=== PATIENT | female | born 1960 | race Caucasian/White ===

== ENCOUNTER 2018-04-06 18:05 | Emergency (ER) | payer BC, OTHER ==
[~2018-04-06] VITALS: Ht 154.9 cm; Wt 54.4 kg
[2018-04-06 23:30] LABS: BASOPHILS # (AUTO) 0.3 (0.0-0.1); BASOPHILS % 1.7 % (0.0-1.0); EOSINOPHILS # (AUTO) 0.6 (0.0-0.4); HEMATOCRIT 41.6 % (34.2-44.1); HEMOGLOBIN 14.1 g/dL (12.0-16.0); LYMPHOCYTES # (AUTO) 2.9 (1.0-3.2); LYMPHOCYTES % 18.8 % (18.0-39.1); MEAN CORPUSCULAR HEMOGLOBIN 31.2 pg (28-32); MEAN CORPUSCULAR HGB CONC 33.9 g/dL (31-35); MONOCYTES # (AUTO) 1.3 (0.2-0.8); MONOCYTES % 8.7 % (4.4-11.3); NEUTROPHILS # (AUTO) 9.6 (2.1-6.9); NEUTROPHILS % 62.7 % (38.7-80.0); PLATELET COUNT 506 x10e3/uL (140-360); RED BLOOD COUNT 4.52 x10e6/uL (3.6-5.1); RED CELL DISTRIBUTION WIDTH 12.8 % (11.7-14.4)
[2018-04-06 23:54] LABS: ALANINE AMINOTRANSFERASE 26 IU/L (0-55); ALBUMIN 3.7 g/dL (3.5-5.0); ALBUMIN/GLOBULIN RATIO 0.8 (0.8-2.0); ALKALINE PHOSPHATASE 144 IU/L (40-150); ANION GAP 18.9 mmol/L (8-16); BLOOD UREA NITROGEN 12 mg/dL (7-26); BUN/CREATININE RATIO 13 (6-25); CALCIUM 9.9 mg/dL (8.4-10.2); CARBON DIOXIDE 22 mmol/L (22-29); CHLORIDE 105 mmol/L (98-107); CREATININE, SERUM 0.91 mg/dL (0.57-1.11); EST GLOMERULAR FILTRATION RATE > 60 ML/MIN (60-); GLUCOSE 79 mg/dL (74-118); POTASSIUM 3.9 mmol/L (3.5-5.1); SODIUM 142 mmol/L (136-145)
[2018-04-07] MEDS ORDERED: SODIUM CHLORIDE 0.9% 50ML 50 ML ONE (00:05)
[2018-04-07] MEDS ORDERED: IOPAMIDOL 370 MG/ML 200 ML INFUS..BTL INJ ONE (00:05)
--- NOTE | 2018-04-07 00:52 | Diagnostic Imaging Report ---
History:Right cheek pain and swelling. Comparison studies: None Technique: Axial images were obtained through the facial region. Coronal and sagittal images reconstructed from the axial data. Dose modulation, iterative reconstruction, and/or weight based adjustment of the mA/kV was utilized to reduce the radiation dose to as low as reasonably achievable. Intravenous contrast: 100 cc of Isovue 370. Findings: Suboptimal evaluation due to dental amalgam artifacts. Soft tissues: Large right subcutaneous soft tissue inflammatory changes in the right perimandibular region that extends superiorly to the premaxillary region. Small superficial, focal soft tissue defect. Suboptimal evaluation due to significant streak artifacts from dental amalgam and dental implants. Despite the limitation, there is 0.6 x 0.8 x 1.5 cm right peripheral rim enhancing hypodensity in right perimandibular soft tissues, represents abscess with surrounding soft tissue phlegmon and cellulitis. Bones: No fractures or bony abnormalities. Dental caries with endodontal disease involving right second mandibular molar with buccal cortical disruption and possible periapical lucency around right first molar implant. Dental caries and endodontal disease involves left maxillary first molar. Orbits: Globes: Intact. Extra or intraconal abnormalities: None. Paranasal sinuses: Clear IMPRESSION: 1. Suboptimal evaluation due to significant streak artifacts from dental amalgam and implants. Despite the limitation, large right perimandibular soft tissue cellulitis,phlegmon and approximately 1.5 cm soft tissue abscess with focal superficial skin defect, are likely odontogenic in origin. 2. Dental caries and endodontal disease with buccal cortical disruption involving right second mandibular molar. Periapical lucency around right first molar implant. 3. Dental caries and endodontal disease involves left maxillary first molar, the activity of which is to be determined clinically. Signed by: Dr. Divya Bran M.D. on 04/07/2018 12:48 AM
[2018-04-07] MEDS ORDERED: VANCOMYCIN 1GM/NS 250 ML 250 ML IV ONE (01:15)
--- NOTE | 2018-04-07 01:54 | NUR ---
SPOKE WITH OSVLADO AT [facility], TRANSFER INITIATED.
[2018-04-07] MEDS ORDERED: ONDANSETRON HCL INJ 2MG/ML 2ML 2 MG/ML VIAL IV STA (02:10)
[2018-04-07] MEDS ORDERED: MORPHINE SULFATE 5 MG/ML VIAL IV ONE (02:15)
[2018-04-07] MEDS ORDERED: MORPHINE SULFATE INJ 4 MG/ML INJ 1ML ONE (02:30)
[2018-04-07] MEDS ORDERED: MORPHINE SULFATE INJ 4 MG/ML INJ 1ML IV ONE (02:30)
[2018-04-07] MEDS ORDERED: DIPHENHYDRAMINE HCL INJ 50 MG/ML VIAL ONE (02:56)
[2018-04-07] MEDS ORDERED: DIPHENHYDRAMINE HCL INJ 50 MG/ML VIAL IV ONE (03:00)
--- NOTE | 2018-04-07 03:55 | NUR ---
PATIENT REPORT GIVEN TO LAURIE SILVEIRA AT [facility].
[2018-04-07 04:35] VITALS: BP 132/84
--- NOTE | 2018-04-08 14:00 | NUR ---
MINI FROM LAB CALLED TO GIVE RESULT OF WOUND CX. RESULTS ALSO PRINTED TO ER. PT WAS TRANSFERRED TO [facility]. INFORMED MINI BAR ATTENDANT LAURIE LINDA OF CX RESULT AND PT'S TRANSFER. THESE RESULTS THEN FAXED TO [facility] WHERE PT IS CURRENTLY BEING TREATED PER LAURIE LINDAFAIRGROUND OPERATOR.
== END 2018-04-07 04:53 | disposition short-term general hospital (02) ==
LOC: ER 18:05
DX: L02.01 Cutaneous abscess of face (principal); L03.211 Cellulitis of face
CPT/HCPCS: 36415; 70487; 80053; 85025; 87040; 87071; 87186; 87205; 99284; J1200; J2270; J2405; J3370; Q9967